=== PATIENT | female | born 1990 | race Two or more races ===

== ENCOUNTER 2017-05-19 16:29 | Emergency (ER) | payer SELFPAY ==
[~2017-05-19] VITALS: Ht 162.6 cm; Wt 53.5 kg
[2017-05-19 17:28] LABS: Basophils # (auto) 0 uL; Basophils % (auto) 0.5 % (0.0-2.0); CONDITION Y; Eosinophils # (auto) 0 uL; Eosinophils % (auto) 0.4 % (0.0-7.0); Hematocrit 38.8 % (36.0-46.0); Hemoglobin 13.2 g/dL (12.2-16.2); Lymphocytes # (auto) 1.9 uL; Lymphocytes % (auto) 30.2 % (10.0-50.0); Mean Corpuscular Hemoglobin 30.4 pg (28.0-32.0); Mean Corpuscular Hgb Conc. 33.9 g/dL (32.0-36.0); Mean Corpuscular Volume 89.6 fL (80.0-100.0); Mean Platelet Volume 7.1 fL (7.4-10.4); Monocytes # (auto) 0.5 uL; Monocytes % (auto) 7.3 % (0.0-12.0); Neutrophils # (auto) 3.9 uL; Neutrophils % (auto) 61.6 % (37.0-80.0); Platelet Count (auto) 388 10^3/uL (140-450); Red Cell Distribution Width 12.7 % (11.6-16.0); White Blood Cell 6.3 10^3/uL (4.4-10.8)
[2017-05-19 17:34] LABS: Urine Bilirubin Negative (Negative); Urine Blood Negative /uL (Negative); Urine Color Yellow (Yellow); Urine Glucose Normal (Normal); Urine Ketone Negative (Negative); Urine Nitrite Negative (Negative); Urine RBC <1 /hpf (0 - 4); Urine Squamous Epithelial Cell FEW /hpf (<5); Urine Urobilinogen Normal (Negative)
[2017-05-19 17:46] LABS: Albumin 3.9 g/dL (3.4-5.0); BUN/Creatinine Ratio 16.2; Calcium 8.7 mg/dL (8.5-10.1); Potassium 3.6 mmol/L (3.5-5.1)
[2017-05-19 17:49] LABS: Bilirubin, Total 0.3 mg/dL (0.2-1.0); Total Protein 8.4 g/dL (6.4-8.2)
[2017-05-19] MEDS ORDERED: ACETAMINOPHEN 325 MG TAB PO ONE (21:30)
[2017-05-19 23:40] VITALS: BP 112/81
== END 2017-05-20 00:20 | disposition home or self-care (01) ==
LOC: ER 16:37
DX: K80.20 Calculus of gallbladder without cholecystitis without obstruction (principal); K59.00 Constipation, unspecified
CPT/HCPCS: 36415; 71010; 74176; 80053; 81001; 81025; 83690; 84702; 85025; 87040; 99285; J7030